=== PATIENT | female | born 1995 | race African-American/Black ===

== ENCOUNTER 2016-07-01 13:30 | Emergency (ER) | payer OTHER ==
[2016-07-01 13:38] VITALS: BP 113/76; PULSE 105; TEMP 98.4; BMI 21.9
--- NOTE | 2016-07-01 14:58 | PDOC ---
History of Present Illness - General Chief Complaint: Cold Symptoms Stated Complaint: COUGHING UP BLOOD,FEVER Time Seen by Provider: 07/01/16 13:52 History Source: Patient Exam Limitations: No Limitations - History of Present Illness Initial Comments: 07/01/16 14:22 20 yr female with c/o "fever" last night and then this am coughing up blood tinged sputum. Pt lives with boyfriend who is not ill. Pt born in [place], arrived to [facility] in 2009. Pt denies any recent travel or sick contacts. 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 Timing/Duration: reports: yesterday Severity: reports: mild Possible Cause: Yes: no prior episodes Associated Symptoms: reports: cough Past History - Past Medical History Allergies/Adverse Reactions: Allergies Allergy/AdvReac Type Severity Reaction Status Date / Time No Known Allergies Allergy Verified 07/01/16 13:36 Home Medications: Ambulatory Orders Azithromycin [Zithromax 250mg Tablets -] 250 mg PO UTDICT #6 tab 07/01/16 Other medical history: DENIES - Surgical History Other Surgical History: 07/01/16 14:23 denies - Family Disease History Comment:: 07/01/16 14:23 none known - Immunization History Immunization Up to Date: Yes (NO FLU) - Psycho/Social/Smoking Cessation Hx Anxiety: No Suicidal Ideation: No Smoking History: Never smoked Have you smoked in the past 12 months: No Information on smoking cessation initiated: No Hx Alcohol Use: No Drug/Substance Use Hx: No Substance Use Type: None Respiratory Specific PMHX - Complaint Specific PMHX Angina: No Bronchitis: No Pneumonia: No Pulmonary Embolus: No TB (Tuberculosis): No Review of Systems - Review of Systems Able to Perform ROS?: Yes Is the patient limited Polish proficient: No Constitutional: Yes: Symptoms Reported, See HPI, Fever Respiratory: Yes: Symptoms reported, Cough, Hemoptysis *Physical Exam - Vital Signs Last Vital Signs Temp Pulse Resp BP Pulse Ox 98.4 F 105 H 20 113/76 100 07/01/16 13:36 07/01/16 13:36 07/01/16 13:36 07/01/16 13:36 07/01/16 13:36 - Physical Exam General Appearance: Yes: Nourished, Appropriately Dressed HEENT: positive: EOMI, THERON, Normal ENT Inspection, TMs Normal, Pharynx Normal Neck: positive: Supple. negative: Tender Respiratory/Chest: positive: Lungs Clear, Normal Breath Sounds Cardiovascular: positive: Regular Rhythm, Regular Rate Gastrointestinal/Abdominal: positive: Normal Bowel Sounds, Soft Musculoskeletal: positive: Normal Inspection Extremity: positive: Normal Capillary Refill, Normal Inspection, Normal Range of Motion Integumentary: positive: Normal Color, Dry, Warm Neurologic: positive: Fully Oriented, Alert, Normal Mood/Affect, Normal Response , Motor Strength / ED Treatment Course - ADDITIONAL ORDERS Additional order review: Laboratory Results 07/01/16 14:00 Urine HCG, Qual Negative - RADIOLOGY Radiology Studies Ordered: Category Date Time Status CHEST PA & LAT [RAD] Stat Radiology 07/01/16 14:21 Ordered Medical Decision Making - Medical Decision Making 07/01/16 14:24 cc: tactile fever one time last night while sleeping cough with blood tinged sputum this morning no sick contacts will get CXR to r/o TB as pt is from [place] 07/01/16 15:13 cxr is negative, I have discussed the findings with the patient and will prescribe an over the counter cough medicine with strict follow up with PMD. *DC/Admit/Observation/Transfer Diagnosis at time of Disposition: Cough - Discharge Dispostion Disposition: HOME Condition at time of disposition: Good - Prescriptions Prescriptions: Azithromycin [Zithromax 250mg Tablets -] 250 mg PO UTDICT #6 tab - Patient Instructions Additional Instructions: drink pleanty of fluids to stay hydrated take tylenol 650mg every 6hrs for fever as needed get an over the counter cough medicine such as Delsym for coughing drink tea with honey and lemon as well to help with cough follow with your doctor or return to the ER if any worsening symptoms take the prescribed antibiotic as directed
== END 2016-07-01 15:22 | disposition home or self-care (01) ==
LOC: JERFT 13:30
DX: R05 Cough (principal)
CPT/HCPCS: 71020-TC; 84703; 99281-25

== ENCOUNTER 2017-12-16 21:16 | Emergency (ER) | payer SELFPAY ==
--- NOTE | 2017-12-16 21:21 | PDOC ---
Rapid Medical Evaluation Time Seen by Provider: 12/16/17 21:20 Medical Evaluation: Allergies Allergy/AdvReac Type Severity Reaction Status Date / Time No Known Allergies Allergy Verified 07/01/16 13:36 12/16/17 21:20 I have performed a [id number] evaluation. The patient presents with a chief complaint: hyperemesis x1 week. ~1 month preg Denies VAG BLEED LMP: 11/03/2017 Pertinent physical exam findings: L/S CTAB I have ordered the following: IVF/ Zofran 4MG IVSS, cmp, HCG The patient will proceed to the ED for further evaluation. IV placed by me in triage. NS started
[2017-12-16] MEDS ORDERED: SODIUM CHLORIDE 1,000 ML IV STA (21:22)
[2017-12-16 21:26] VITALS: BP 120/61; PULSE 89; TEMP 98.6; BMI 21.7
--- NOTE | 2017-12-16 21:32 | PDOC ---
History of Present Illness - General Chief Complaint: Nausea/Vomiting Stated Complaint: FATIGUE () Time Seen by Provider: 12/16/17 21:20 - History of Present Illness Initial Comments: 12/16/17 23:33 Ms. Lopes is a 22 yo female w/ no pmh who presents for evaluation of 1 week history of nausea and vomiting. Patient reports this is her first (confirmed with home test only) and that she has been unable to keep down over this time period. She has not yet had her first FIRE MANAGEMENT OFFICER visit for this however expressed that she has an FIRE MANAGEMENT OFFICER in mind. The patient denies chest pain, shortness of breath, headache and dizziness. Denies fever, chills, diarrhea and constipation. Denies dysuria, frequency, urgency and hematuria. Allergies: NKDA Past History - Past Medical History Allergies/Adverse Reactions: Allergies Allergy/AdvReac Type Severity Reaction Status Date / Time No Known Allergies Allergy Verified 12/17/17 00:05 Home Medications: Ambulatory Orders Doxylamine Succinate/Vit B6 [Eliud Francisco 10-10 mg Tablet] 1 each PO DAILY #7 tablet. 12/17/17 COPD: No DVT: No - Immunization History Immunization Up to Date: Yes (NO FLU) - Suicide/Smoking/Psychosocial Hx Smoking History: Never smoked Have you smoked in the past 12 months: No Information on smoking cessation initiated: No Hx Alcohol Use: No Drug/Substance Use Hx: No Substance Use Type: None Review of Systems - Review of Systems Comments:: 12/16/17 23:35 GENERAL/CONSTITUTIONAL: No fever or chills. No weakness. HEAD, EYES, EARS, NOSE AND THROAT: No change in vision. No ear pain or discharge. No sore throat. CARDIOVASCULAR: No chest pain or shortness of breath RESPIRATORY: No cough, wheezing, or hemoptysis. GASTROINTESTINAL: +N/V as described. No diarrhea or constipation. GENITOURINARY: No dysuria, frequency, or change in urination. MUSCULOSKELETAL: No joint or muscle swelling or pain. No neck or back pain. SKIN: No rash NEUROLOGIC: No headache, vertigo, loss of consciousness, or change in strength/ sensation. ENDOCRINE: No increased thirst. No abnormal weight change HEMATOLOGIC/LYMPHATIC: No anemia, easy bleeding, or history of blood clots. ALLERGIC/IMMUNOLOGIC: No hives or skin allergy. *Physical Exam - Vital Signs Last Vital Signs Temp Pulse Resp BP Pulse Ox 98.6 F 89 20 120/61 100 12/16/17 21:23 12/16/17 21:23 12/16/17 21:23 12/16/17 21:23 12/16/17 21:23 - Physical Exam Comments: 12/16/17 23:36 GENERAL: Awake, alert, and fully oriented, in no acute distress HEAD: No signs of trauma, normocephalic, atraumatic EYES: PERRLA, EOMI, sclera anicteric, conjunctiva clear ENT: Auricles normal inspection, hearing grossly normal, nares patent, oropharynx clear without exudates. Moist mucosa NECK: Normal ROM, supple, no lymphadenopathy, JVD, or masses LUNGS: No distress, speaks full sentences, clear to auscultation bilaterally HEART: Regular rate and rhythm, normal S1 and S2, no murmurs, rubs or gallops, peripheral pulses normal and equal bilaterally. ABDOMEN: Soft, nontender, normoactive bowel sounds. No guarding, no rebound. No masses EXTREMITIES: Normal inspection, Normal range of motion, no edema. No clubbing or cyanosis. NEUROLOGICAL: Cranial nerves II through XII grossly intact. Normal speech, normal gait, no focal sensorimotor deficits SKIN: Warm, Dry, normal turgor, no rashes or lesions noted. ED Treatment Course - LABORATORY CBC & Chemistry Diagram: 12/16/17 21:20 Medical Decision Making - Medical Decision Making 12/16/17 23:36 Ms. Lopes is a 22 yo female w/ no known pmh who presents for evaluation of n/v for the past week. Patient given fluids/zofran for symptomatic relief. Labs grossly wnl as below. Transvaginal US sent for confirmation of IUP - revealed 6w 3d IUP. No concern for acute process at this time. Patient tolerated PO. Discharging to home w/ instructions to f/u with FIRE MANAGEMENT OFFICER for further evaluation. Discharging to home. Laboratory Results - last 24 hr 12/16/17 12/16/17 12/16/17 21:20 21:20 21:53 Sodium 140 Potassium 4.3 Chloride 106 Carbon Dioxide 25 Anion Gap 9 BUN 5 L Creatinine 0.6 Creat Clearance w eGFR > 60 Random Glucose 83 Calcium 9.1 Total Bilirubin 0.3 AST 24 ALT 33 Alkaline Phosphatase 46 Total Protein 7.4 Albumin 3.7 Urine Color Yellow Urine Appearance Slcloudy Urine pH 6.0 Ur Specific [place] 1.029 Urine Protein Negative Urine Glucose (UA) Negative Urine Ketones Trace H Urine Blood Negative Urine Nitrite Negative Urine Bilirubin Negative Urine Urobilinogen 2.0 H Ur Leukocyte Esterase Negative Urine HCG, Qual Positive *DC/Admit/Observation/Transfer Diagnosis at time of Disposition: Nausea and vomiting Qualifiers: Vomiting type: unspecified Vomiting Intractability: non-intractable Qualified Code(s): R11.2 - Nausea with vomiting, unspecified - Discharge Dispostion Disposition: HOME - Prescriptions Prescriptions: Doxylamine Succinate/Vit B6 [Eliud Francisco 10-10 mg Tablet] 1 each PO DAILY #7 tablet. - Referrals Referrals: Shayna Lockwood MD [Primary Care Provider] - - Patient Instructions Printed Discharge Instructions: DI for Hyperemesis Gravidarum Additional Instructions: Please follow-up with FIRE MANAGEMENT OFFICER early next week for further evaluation of . Take all medications as proscribed. Return to ER if any further nausea, vomiting, inability to eat, fever, chills, or other concerning symptoms. - Post Discharge Activity
[2017-12-16] MEDS ORDERED: ONDANSETRON 4 MG/2 ML VIAL IVPUSH ONE (21:39)
[2017-12-16] MEDS ORDERED: ONDANSETRON 4 MG/2 ML VIAL ONE (21:42)
--- NOTE | 2017-12-16 21:54 | PDOC ---
Attending Attestation - HPI HPI: 12/16/17 22:50 The patient is a 22 year old female , with a significant past medical history of, who presents to the emergency department with, 1 week of hyperemesis. The patient is one month . Her last menses was 11/03/17. Allergies: NKA Past surgical history: None reported. Social history: Nonsmoker. Denies EtOH use and recreational drug use. Primary Care Physician: Dr. Shayna Lockwood <Ayla Maloney - Last Filed: 12/16/17 22:50> - Resident Resident Name: Angel Barber - ED Attending Attestation I have performed the following: I have examined & evaluated the patient, The case was reviewed & discussed with the resident, I agree w/resident's findings & plan, Exceptions are as noted - Physicial Exam PE: 12/16/17 22:24 Patient is awake and alert, well-nourished, in no distress Normocephalic and atraumatic PERRLA, EOMI, no scleral icterus CTA RRR Abdomen is soft, nontender, nondistended, no guarding or rebound - Medical Decision Making 12/16/17 22:25 Patient is a well-appearing 22-year-old female, 1 para 0 at approximately 4 weeks gestation by 1 I suspect hyperemesis gravidarum. Will hydrate with dextrose plus NS. We'll obtain CBC/CMP/mag. We'll administer Zofran. Will reassess. Who presents with intractable nausea and nonbloody, nonbilious vomiting. 12/16/17 23:31 Patient resting comfortably, tolerates by mouth. OB ultrasound shows IUP at 6 weeks 3 days with FH. CMP reveals no evidence of electrolyte abnormalities. We' ll discharge with antiemetics, H2 blockers and COMMERCIAL [employer]BER follow-up. <Renard Nunes - Last Filed: 12/16/17 23:31> Attestations - Attestations 12/16/17 22:50 Documentation prepared by Ayla Maloney, acting as medical resident for Renard Nunes MD. <Ayla Maloney - Last Filed: 12/16/17 22:50>
[2017-12-16] MEDS ORDERED: DEXTROSE 5%-NORMAL SALINE 1,000 ML IV ONE (21:59)
[2017-12-16 22:04] LABS: ALBUMIN 3.7 g/dl (3.4-5.0); ALK PHOS 46 U/L (45-117); ANION GAP 9 (8-16); BILIRUBIN,TOTAL 0.3 mg/dL (0.2-1.0); BLOOD UREA NITROGEN 5 mg/dL (7-18); CALCIUM 9.1 mg/dL (8.5-10.1); CHLORIDE 106 mmol/L (98-107); CO2 25 mmol/L (21-32); CREATININE 0.6 mg/dL (0.55-1.02); GLUCOSE,RANDOM 83 mg/dL (74-106); POTASSIUM 4.3 mmol/L (3.5-5.1); SGOT/AST 24 U/L (15-37); SGPT/ALT 33 U/L (12-78); SODIUM 140 mmol/L (136-145); TOT PROT 7.4 g/dl (6.4-8.2)
[2017-12-16 22:19] LABS: URINE APPEARANCE SLCLOUDY; URINE BILIRUBIN NEGATIVE (<2.0 mg/dL); URINE COLOR YELLOW; URINE GLUCOSE (UA) NEGATIVE (NEGATIVE); URINE KETONE TRACE (NEGATIVE); URINE LEUK ESTERASE NEGATIVE (NEGATIVE); URINE NITRITE NEGATIVE (NEGATIVE); URINE PROTEIN NEGATIVE (NEGATIVE)
[2017-12-16] MEDS ORDERED: FAMOTIDINE 20 MG/50 ML IVPB 20 MG/50 ML MG IVPB ONE (22:26)
[2017-12-17] MEDS ORDERED: ONDANSETRON 4 MG/2 ML VIAL IVPUSH ONE (00:30)
[2017-12-17] MEDS ORDERED: ONDANSETRON 4 MG/2 ML VIAL ONE (00:33)
== END 2017-12-17 00:40 | disposition home or self-care (01) ==
LOC: JER 21:16
PROC: 3E0337Z Introduction of Electrolytic and Water Balance Substance into Peripheral Vein, Percutaneous Approach (ICD-10-PCS; principal; 2017-12-16)
PROC: 3E033GC Introduction of Other Therapeutic Substance into Peripheral Vein, Percutaneous Approach (ICD-10-PCS; 2017-12-16)
PROC: 3E033GC Introduction of Other Therapeutic Substance into Peripheral Vein, Percutaneous Approach (ICD-10-PCS; 2017-12-16)
DX: O26.891 Other specified pregnancy related conditions, first trimester (principal); O21.0 Mild hyperemesis gravidarum; Z3A.01 Less than 8 weeks gestation of pregnancy
CPT/HCPCS: 36415; 76801-TC; 80053; 81003; 84703; 99282-25; J7030